=== PATIENT | male | born 1995 | race Hispanic/Latino ===

== ENCOUNTER 2017-08-10 21:46 | Emergency (ER) | payer SELFPAY ==
[2017-08-10 22:37] LABS: Urine Blood NEGATIVE (NEG); Urine Glucose NEGATIVE (NEG); Urine Protein NEGATIVE (NEG); Urine pH 6.5 (5.0-7.0)
--- NOTE | 2017-08-10 22:52 | ER ---
Nurse's Notes [facility] Name: Jose Juan Richardson Jr Age: 21 yrs Sex: Male : 1995 Arrival Date: 08/10/2017 Time: 21:50 Bed 23 Private MD: Diagnosis: Vomiting;Diarrhea, unspecified Presentation: 08/10 22:05 Presenting complaint: Patient states: he thinks he may be dehydrated woke up this bb morning vomited then he went to work and was later sent home c/o burning eyes went to sleep after he went home but woke up feeling dizzy, light-headed with a headache and a "coppery taste" in his mouth. Transition of care: patient was not received from another setting of care. Onset of symptoms was August 10, 2017. Risk Assessment: Do you want to hurt yourself or someone else? Patient reports no desire to harm self or others. Initial Sepsis Screen: Does the patient meet any 2 criteria? No. Patient's initial sepsis screen is negative. Does the patient have a suspected source of infection? No. Patient's initial sepsis screen is negative. Care prior to arrival: None. 22:05 Method Of Arrival: Ambulatory bb 22:05 Acuity: YARIEL 3 bb Historical: - Allergies: 22:08 No Known Allergies; bb - Home Meds: 22:08 None [Active]; bb - PMHx: 22:08 ADD/ADHD; Hernia; bb - PSHx: 22:08 Appendectomy; bb - Immunization history:: Adult Immunizations up to date. - Social history:: Smoking status: Patient/guardian denies using tobacco, Patient/guardian denies using alcohol, street drugs. - Ebola Screening: : No symptoms or risks identified at this time. - Family history:: not pertinent. Screenin:22 Abuse screen: Denies threats or abuse. Denies injuries from another. Nutritional kr2 screening: No deficits noted. Tuberculosis screening: No symptoms or risk factors identified. Fall Risk None identified. Assessment: 22:20 General: Appears in no apparent distress. comfortable, well groomed, well developed, kr2 well nourished, Behavior is calm, cooperative, appropriate for age. Pain: Denies pain. Neuro: Level of Consciousness is awake, alert, obeys commands, Oriented to person, place, time, situation, Appropriate for age. Cardiovascular: Capillary refill < 3 seconds in bilateral fingers Patient's skin is warm and dry. Respiratory: Airway is patent Respiratory effort is even, unlabored, Respiratory pattern is regular, symmetrical. GI: Abdomen is round non-distended, Reports nausea, vomiting. : Urine is clear. EENT: Oral mucosa is moist. Derm: Skin is intact, is healthy with good turgor, Skin is clammy, Skin is pink, Skin temperature is warm. Musculoskeletal: Circulation, motion, and sensation intact. 23:01 Reassessment: Patient appears in no apparent distress at this time. Patient and/or kr2 family updated on plan of care and expected duration. Pain level reassessed. Patient is alert, oriented x 3, equal unlabored respirations, skin warm/dry/pink. Patient denies pain at this time. Vital Signs: 22:08 BP 121 / 79; Pulse 67; Resp 16 S; Temp 98.1(O); Pulse Ox 99% on R/A; Weight 97.52 kg bb (R); Height 5 ft. 9 in. (175.26 cm) (R); Pain 6/10; 23:12 BP 119 / 76; Pulse 66; Resp 16; Pulse Ox 100% on R/A; kr2 22:08 Body Mass Index 31.75 (97.52 kg, 175.26 cm) ED Course: 21:50 Patient arrived in ED. al2 21:53 Rodo Cotto MD is Attending Physician. [facility] 22:07 Triage completed. bb 22:08 Arm band placed on Patient placed in an exam room, on a stretcher, on pulse oximetry. 22:20 Danielle Phelps, RN is Primary Nurse. kr2 22:22 Patient has correct armband on for positive identification. Bed in low position. Call kr2 light in reach. Side rails up X 1. Pulse ox on. NIBP on. Door closed. Warm blanket given. Head of bed elevated. 23:00 No provider procedures requiring assistance completed. Patient did not have IV access kr2 during this emergency room visit. Administered Medications: No medications were administered Outcome: 22:51 Discharge ordered by . devyn 23:01 Discharged to home ambulatory. kr2 23:01 Condition: good 23:01 Discharge instructions given to patient, Instructed on discharge instructions, follow up and referral plans. Demonstrated understanding of instructions, follow-up care, medications. 23:12 Patient left the ED. kr2 Signatures: Rodo Cotto MD MD cha Ballard, Brenda, RN RN Danielle Guerrero RN RN kr2 Chloe Hamilton
--- NOTE | 2017-08-10 22:52 | EDPHYS ---
Physician Documentation [facility] Name: Jose Juan Richardson Jr Age: 21 yrs Sex: Male : 1995 Arrival Date: 08/10/2017 Time: 21:50 Bed 23 Private MD: ED Physician Rodo Cotto HPI: 08/10 22:44 This 21 yrs old Male presents to ER via Ambulatory with complaints of devyn Nausea/Vomiting, Fever. 22:44 The patient presents to the emergency department with nausea, vomiting, diarrhea, devyn abdominal pain. Onset: The symptoms/episode began/occurred just prior to arrival. Possible causes: unknown. The symptoms are aggravated by nothing. The symptoms are alleviated by nothing. Associated signs and symptoms: The patient has no apparent associated signs or symptoms. Severity of symptoms: At their worst the symptoms were very mild. The patient has not experienced similar symptoms in the past. Historical: - Allergies: 22:08 No Known Allergies; bb - Home Meds: 22:08 None [Active]; bb - PMHx: 22:08 ADD/ADHD; Hernia; bb - PSHx: 22:08 Appendectomy; bb - Immunization history:: Adult Immunizations up to date. - Social history:: Smoking status: Patient/guardian denies using tobacco, Patient/guardian denies using alcohol, street drugs. - Ebola Screening: : No symptoms or risks identified at this time. - Family history:: not pertinent. ROS: 22:44 Constitutional: Negative for fever, chills, and weight loss, Eyes: Negative for injury, devyn pain, redness, and discharge, ENT: Negative for injury, pain, and discharge, Neck: Negative for injury, pain, and swelling, Cardiovascular: Negative for chest pain, palpitations, and edema, Respiratory: Negative for shortness of breath, cough, wheezing, and pleuritic chest pain, Back: Negative for injury and pain, : Negative for injury, bleeding, discharge, and swelling, MS/Extremity: Negative for injury and deformity, Skin: Negative for injury, rash, and discoloration, Neuro: Negative for headache, weakness, numbness, tingling, and seizure, Psych: Negative for depression, anxiety, suicide ideation, homicidal ideation, and hallucinations, Allergy/Immunology: Negative for hives, rash, and allergies, Endocrine: Negative for neck swelling, polydipsia, polyuria, polyphagia, and marked weight changes. 22:44 Abdomen/GI: Positive for abdominal pain, nausea and vomiting, nausea, vomiting, and diarrhea. Exam: 22:44 Constitutional: This is a well developed, well nourished patient who is awake, alert, devyn and in no acute distress. Head/Face: Normocephalic, atraumatic. Eyes: Pupils equal round and reactive to light, extra-ocular motions intact. Lids and lashes normal. Conjunctiva and sclera are non-icteric and not injected. Cornea within normal limits. Periorbital areas with no swelling, redness, or edema. ENT: Nares patent. No nasal discharge, no septal abnormalities noted. Tympanic membranes are normal and external auditory canals are clear. Oropharynx with no redness, swelling, or masses, exudates, or evidence of obstruction, uvula midline. Mucous membranes moist. Neck: Trachea midline, no thyromegaly or masses palpated, and no cervical lymphadenopathy. Supple, full range of motion without nuchal rigidity, or vertebral point tenderness. No Meningismus. Chest/axilla: Normal chest wall appearance and motion. Nontender with no deformity. No lesions are appreciated. Cardiovascular: Regular rate and rhythm with a normal S1 and S2. No gallops, murmurs, or rubs. Normal PMI, no JVD. No pulse deficits. Respiratory: Lungs have equal breath sounds bilaterally, clear to auscultation and percussion. No rales, rhonchi or wheezes noted. No increased work of breathing, no retractions or nasal flaring. Abdomen/GI: Soft, non-tender, with normal bowel sounds. No distension or tympany. No guarding or rebound. No evidence of tenderness throughout. Back: No spinal tenderness. No costovertebral tenderness. Full range of motion. Male : Normal genitalia with no discharge or lesions. Skin: Warm, dry with normal turgor. Normal color with no rashes, no lesions, and no evidence of cellulitis. MS/ Extremity: Pulses equal, no cyanosis. Neurovascular intact. Full, normal range of motion. Neuro: Awake and alert, GCS 15, oriented to person, place, time, and situation. Cranial nerves II-XII grossly intact. Motor strength 5/5 in all extremities. Sensory grossly intact. Cerebellar exam normal. Normal gait. Psych: Awake, alert, with orientation to person, place and time. Behavior, mood, and affect are within normal limits. Vital Signs: 22:08 BP 121 / 79; Pulse 67; Resp 16 S; Temp 98.1(O); Pulse Ox 99% on R/A; Weight 97.52 kg bb (R); Height 5 ft. 9 in. (175.26 cm) (R); Pain 6/10; 23:12 BP 119 / 76; Pulse 66; Resp 16; Pulse Ox 100% on R/A; kr2 22:08 Body Mass Index 31.75 (97.52 kg, 175.26 cm) MDM: 21:53 Patient medically screened. [facility] 22:50 Data reviewed: vital signs, nurses notes. [facility] 08/10 22:22 Order name: Urine Dipstick--Ancillary (enter results); Complete Time: 22:44 eb Administered Medications: No medications were administered Disposition: 08/10/17 22:51 Discharged to Home. Impression: Vomiting, Diarrhea, unspecified. - Condition is Stable. - Discharge Instructions: Food Choices to Help Relieve Diarrhea, Adult, Diarrhea, Nausea and Vomiting, Nausea and Vomiting, [id number], Diarrhea, [id number]. - Medication Reconciliation Form, Thank You Letter, Antibiotic Education, Prescription Opioid Use, Work release form form. - Follow up: Private Physician; When: 2 - 3 days; Reason: Recheck today's complaints, Continuance of care, Re-evaluation by your physician. - Problem is new. - Symptoms have improved. Signatures: Dispatcher [employer] EDRI Rodo Cotto MD MD cha Ballard, Brenda, ESTELLA RN Danielle Guerrero RN RN kr2 Corrections: (The following items were deleted from the chart) 23:12 22:51 08/10/2017 22:51 Discharged to Home. Impression: Vomiting; Diarrhea, unspecified. kr2 Condition is Stable. Forms are Medication Reconciliation Form, Thank You Letter, Antibiotic Education, Prescription Opioid Use. Follow up: Private Physician; When: 2 - 3 days; Reason: Recheck today's complaints, Continuance of care, Re-evaluation by your physician. Problem is new. Symptoms have improved. [facility]
== END 2017-08-10 23:12 | disposition home or self-care (01) ==
LOC: ER 21:46
DX: R19.7 Diarrhea, unspecified (principal)
CPT/HCPCS: 81003; 99283

== ENCOUNTER 2022-07-30 23:53 | Emergency (ER) | payer SELFPAY ==
--- OUTSIDE RECORDS SUMMARY | 2022-07-30 23:57 | XMS REPORT | Continuity of Care Document ---
:1995 Author Organization [facility] t Address [address] [place] [address] [address] [place] [address] Care Team Providers Name Role Phone Pcp, Patient Does Not Have A Primary Care Physician [email or web address] Attending Clinician Unavailable Salomon HEAD, METER REPAIRER HELPERReena Parsons Attending Clinician [phone] Ami Reynaga MA Attending Clinician Unavailable Fawn Hurst DO Attending Clinician Salomon HEAD, Reena ISAAC Unavailable [phone] Payers Payer Name Policy Type Policy Number Effective Date Expiration Date S ourgisela Title X P [id number] 2021 00:00:00 2022 00:00 :00 Title X P [id number] 2021 00:00:00 2022 00:00 :00 Problems Condition Condition Condition Status Onset Resolution Last Treating Co mments Source Name Details Category Date Date Treatment Clinician Date Disorder, Condition Active 2021-022021-12-27 Salomon [facility] endocrine 02-26 12:05:55 Reena Adult NOS 00:00: Medicin 00 e Health Condition Active 2021-022021-12-27 Salomon [facility] maintenanc 02-26 12:05:55 Reena Adul t e - 00:00: Medicin general 00 e care ADHD Condition Active 2021-022021-12-27 Salomon [facility] 02-26 12:05:55 Reena Adult 00:00: Medicin 00 e Exercise Condition Active 2021-022021-12-27 Pasha Latif Counseling 02-26 12:05:55 Reena Adul t 00:00: Medicin 00 e Overweight Condition Active 2021-022021-12-27 Salomon [facility] 02-26 12:05:55 Reena Adult 00:00: Medicin 00 e No known No known Disease Unive rs active active ity of problems problems [facility] Allergies, Adverse Reactions, Alerts Allergy Allergy Status Severity Reaction(s) Onset Inactive Treating Comm ents Source Name Type Date Date Clinician HYDROCOD Drug Active Low caused veryn 2021-02 LM C ONE allergy Criticali low blood 02-26 Jorge Alberto lt (disorde ty pressure 00:00: Medici n r) 00 e Hydrocod Propensi Active Nausea Univer s one ty to and/or 09-20 ity of adverse Vomiting 00:00: [place] reaction 00 [facility] s Branch HYDROCOD DRUG Active N/V Univers ONE INGREDI 09-20 ity of 00:00: [place] 00 [facility] Branch Social History Social Habit Start Date Stop Date Quantity Comments Source Exposure to Not sure University SARS-CoV-2 (event) [facility] is there any chance 2022-01-23 2022-01-23 No [facility] that you could be 15:05:27 15:05:27 Health ? PHQ2 Questionairre 2022-01-23 2022-01-23 [facility] Score 15:05:27 15:05:27 Health if the patient is 2022-01-23 2022-01-23 No [facility] using/has used a 15:05:27 15:05:27 Health vaping item, Current, Former, Never Used, Not asked Patient was 2022-01-23 2022-01-23 Counseled for [facility] munity counseled for sexual 15:05:27 15:05:27 sexual health [facility] drug use 2022-01-23 2022-01-23 Never [facility] Nahedi ty 15:05:27 15:05:27 Health alcohol use 2022-01-23 2022-01-23 Never [facility] ity 15:05:27 15:05:27 Health social history 2022-01-23 2022-01-23 reviewed today [facility] reviewed E&M 15:05:27 15:05:27 Health albumin, serum 2021-12-27 2021-12-27 5.0 g/dL [facility] madhaviity 13:38:00 13:38:00 Health Sex Assigned At [birth year] [facility] y of 00:00:00 00:00:00 [facility] Smoking Status Start Date Stop Date Source Never smoked tobacco (finding) L [facility] Unknown if ever smoked [facility] Medications Ordered Filled Start Stop Current Ordering Indication Dosage Frequency Signature Comments Components Source Medication Medication Date Date Medication? Clinician (SIG) Name Name (SPIRONOLAC 2021-02 Yes Reena 1 Take 1 LM C TONE) 50 MG 03-25 Salomon MSN, tablet by Adult TABS 00:00: METER REPAIRER HELPER mouth Medicin 00 twice a e day (ESTRADIOL) 2021-02 Yes Reena 1 Take 1 LM C 2 MG TABS 03-25 Salomon MSN, tablet by Adult 00:00: METER REPAIRER HELPER mouth as Medicin 00 directed e Take 2 tablets AM and 1 tab PM (PROGESTERO 2021-02 Yes Reena 1 Take 1 LM C NE) 100 MG 02-26 Salomon MSN, capsule by Adult CAPS 00:00: METER REPAIRER HELPER mouth once Medicin 00 a day e (SPIRONOLAC 2021-02 No Reena 1 Take 1 L MC TONE) 25 MG 02-26 Salomon MSN, tablet by Adult TABS 00:00: 00:00 METER REPAIRER HELPER mouth Medicin 00 :00 twice a e day (ESTRADIOL) 2021-02 No Reena 1 Take 1 L MC 2 MG TABS 02-26 Salomon MSN, tablet by Adult 00:00: 00:00 METER REPAIRER HELPER mouth Medicin 00 :00 twice a e day traMADOL 2017-0 Yes 50mg Take 1 Univers (ULTRAM) 50 7-27 tablet by ity of mg tablet 00:00: mouth [place] 00 every 6 Medical (six) Branch hours as needed for Pain (scale 4-6). traMADOL 2017-0 Yes 50mg Take 1 Univers (ULTRAM) 50 7-27 tablet by ity of mg tablet 00:00: mouth [place] 00 every 6 Medical (six) Branch hours as needed for Pain (scale 4-6). Immunizations Ordered Immunization Filled Immunization Date Status Commen ts Source Name Name Fluzone Quadrivalent 2021-12-27 Completed [facility] IM Prefilled Syringe 12:49:00 [facility] 0.5 ML (PF) [id number] Vital Signs Vital Name Observation Time Observation Value Comments Source Systolic blood 2020-10-25 15:53:00 131 mm[Hg] Univer sity [facility] Diastolic blood 2020-10-25 15:53:00 81 mm[Hg] Unive rsity [facility] Heart rate 2020-10-25 15:53:00 81 /min [facility] Body temperature 2020-10-25 15:53:00 36.78 [facility] Respiratory rate 2020-10-25 15:53:00 16 /min [facility] Body height 2020-10-25 15:53:00 175.3 cm [facility] Body weight 2020-10-25 15:53:00 95.255 kg [facility] BMI 2020-10-25 15:53:00 31.01 kg/m2 [facility] Oxygen saturation in 2020-10-25 15:53:00 99 /min [facility] Arterial blood by [facility] Pulse oximetry Branch pulse rate 2021-12-27 11:18:10 69 /min On license of [facility] Diastolic blood 2021-12-27 11:18:10 61 mm[Hg] [facility] 2021-12-27 11:18:10 109 mm[facility]Hg[facility] 2021-12-27 11:18:10 98.3 [degF[facility] BMI (body mass 2021-12-27 11:18:10 n/a [facility] index) percentile Health Body Mass Index 2021-12-27 11:18:10 27.71 kg[facility]m2 [facility] weight E&M 2021-12-27 11:18:10 187 [lb_av] [facility] weight in kilograms 2021-12-27 11:18:10 85 kg L [facility] E&M Health height in 2021-12-27 11:18:10 [facility] temperature site 2021-12-27 11:18:10 oral [facility] Procedures Procedure Date / Time Performing Clinician Source Performed Health 2022-01-11 14:08:40 Provider, [facility] Education/Supportive Health Services Health Counseling First Ix admin via ID 2021-12-27 12:49:39 Reena Latif [facility] IM or jet injects with Health counseling by physician for adult Fluzone Quadrivalent IM 2021-12-27 12:47:34 Reena Latif [facility] Prefilled Syringe 0.5 Health mL (PF) Vaccines Ordered - 2021-12-27 11:55:46 [facility]ena [facility]X Consent/Declination Forms Gender Care Navigation 2021-12-27 11:31:24 Reena Latif Critical access hospital Venipuncture 2021-12-27 11:30:12 Reena Latif [facility] RAPID STREP SCREEN FOR 2020-10-25 15:57:00 Fawn Hurst [employer] [place] GROUP A Medical Branch COVID-19 (ID NOW RAPID 2020-10-25 15:57:00 Fawn Hurst [employer] [facility] TESTING) Medical Branch Encounters Start End Encounter Admission Attending Care Care Encounter Source Date/Time Date/Time Type Type Clinicians Facility Department ID 2022-06-25 Outpatient [id number] [facility] [id number] [facility] 12:21:08 [id number] [facility] 2022-06-22 Outpatient [id number] [facility] [id number] [facility] 20:22:11 [id number] [facility] 2022-04-[address] [id number] [facility] 13:31:14 [id number] [facility] 2022-01-22 [address] [id number] [facility] 15:39:05 [id number] [facility] 2022-01-[address] [id number] [facility] 13:58:47 [id number] [facility] 2021-12-28 Outpatient [address] [id number] [facility] 11:45:07 [id number] [facility] 2021-12-05 Outpatient [facility] [id number] [facility] 14:27:09 [id number] [facility] 2022-01-23 2022-01-24 In-person Reena Latif [facility] Adult Encounter/ [facility] 00:00:00 00:00:00 encounter Ami Reynaga Medicine [id number] [facility] [id number] [facility] 2022-01-23 2022-01-24 In-person Reena Latif [facility] Adult [id number] [facility] 00:00:00 00:00:00 encounter Ami Reynaga Medicine [id number] [facility] 2021-12-27 2021-12-28 In-person Reena Latif [facility] Adult [id number] [facility] 00:00:00 00:00:00 encounter Miles Camacho Medicine [id number] [facility] Ami Reynaga [facility] 2021-12-27 2021-12-28 In-person Reena Latif [facility] Adult Encounter/ Legacy 00:00:00 00:00:00 encounter Ami Reynaga Medicine [id number] [facility] [id number] [facility] 2020-10-25 2020-10-25 Emergency Aris [facility] [id number] [facility] 11:00:00 13:52:00 Fawn Beck [id number] [facility] [id number] [facility] [id number] [place] [id number] Branch 2020-10-25 2020-10-25 Emergency X [facility] ERT [id number] Univers 10:41:00 10:41:00 [facility] Results Test Description Test Time Test Comments Results Result Comments Source mean corpuscular hemoglobin, RBC 2021-12-27 13:38:00 Test Item Value Reference Range Interpretation Comme nts mean corpuscular hemoglobin, RBC (test code = 785-6) 31.3 pg 2 7.0-33.0 N [facility], [id number] 13:38:00 Test Item Value Reference Range Interpretation Comments mean corpuscular volume, RBC (test 90.2 fL 80.0-100.0 N code = 787-2) [facility]ocrit, [id number] 13:38:00 Test Item Value Reference Range Interpretation Comments hematocrit, blood (test code = 4544-3) 45.3 % 38.5-50.0 N [facility]oglobin, [id number] 13:38:00 Test Item Value Reference Range Interpretation Comments hemoglobin, blood (test code = 15.7 g/dL 13.2-17.1 N 718-7) [facility]throcyte (RBC) [id number] 13:38:00 Test Item Value Reference Range Interpretation Comments erythrocyte (RBC) count (test 5.02 MILLION/UL 4.20-5.80 N code = 789-8) [facility]leukocyte count, [id number] 13:38:00 Test Item Value Reference Range Interpretation Comments leukocyte count, blood (test 5.6 THOUSAND/UL 3.8-10.8 N code = 6690-2) [facility]alanine aminotransferase (SGPT), [id number] 13:38:00 Test Item Value Reference Range Interpretation Comments alanine aminotransferase (SGPT), serum 18 1/L 9-46 N (test code = 1742-6) [facility]villeaspartate aminotransferase (SGOT), [id number] 13:38:00 Test Item Value Reference Range Interpretation Comments aspartate aminotransferase (SGOT), 11 1/L 10-40 N serum (test code = 1920-8) [facility]villealkaline phosphatase, [id number] 13:38:00 Test Item Value Reference Range Interpretation Comments alkaline phosphatase, serum (test code 54 1/L 36-130 N = 1783-0) [facility]bilirubin, serum, [id number] 13:38:00 Test Item Value Reference Range Interpretation Comments bilirubin, serum, total (test code 0.8 mg/dL 0.2-1.2 N = 1975-2) [facility] Healthalbumin/globulin ratio, [id number] 13:38:00 Test Item Value Reference Range Interpretation Comments albumin/globulin ratio, serum 1.9 (calc) 1.0-2.5 N (test code = 1759-0) [facility]lobulins, serum, [id number] 13:38:00 Test Item Value Reference Range Interpretation Comments globulins, serum, total (test 2.6 G/DL (CALC) 1.9-3.7 N code = 2336-6) [facility] Healthalbumin, [id number] 13:38:00 Test Item Value Reference Range Interpretation Comments albumin, serum (test code = 1751-7) 5.0 g/dL 3.6-5.1 N [facility]protein, total, [id number] 13:38:00 Test Item Value Reference Range Interpretation Comments protein, total, serum (test code = 7.6 g/dL 6.1-8.1 N 5-2) [facility]calcium, [id number] 13:38:00 Test Item Value Reference Range Interpretation Comments calcium, serum (test code = 10.3 mg/dL 8.6-10.3 N 1999-8) [facility] dioxide, venous [id number] 13:38:00 Test Item Value Reference Range Interpretation Comments carbon dioxide, venous blood (test 31 mmol/L 20-32 N code = 2026-1) [facility]villechloride, [id number] 13:38:00 Test Item Value Reference Range Interpretation Comments chloride, serum (test code = 102 mmol/L 98-110 N 2074-0) [facility]potassium, [id number] 13:38:00 Test Item Value Reference Range Interpretation Comments potassium, serum (test code = 4.2 mmol/L 3.5-5.3 N 2823-3) [facility]villesodium, [id number] 13:38:00 Test Item Value Reference Range Interpretation Comments sodium, serum (test code = 2951-2) 140 mmol/L 135-146 N [facility]villeurea nitrogen/creatinine ratio, [id number] 13:38:00 Test Item Value Reference Range Interpretation Comments urea NOT APPLICABLE (calc) 6-22 nitrogen/creatinine ratio, serum (test code = 3097-3) [facility]tersvilleEstimated Glomerular Filtration Rate (calc)2021-12-27 13:38:00 Test Item Value Reference Range Interpretation Comments Estimated Glomerular 128 See_Comment N [Autom ated message] Filtration Rate mL/min/{1.73 The system w [facility] (calc) (test code = m2} generate d this 92889-7) result transmit christo reference range : > OR = 60. The reference range was not used to interpret this result as normal/abnormal . [facility]villecreatinine, [id number] 13:38:00 Test Item Value Reference Range Interpretation Comments creatinine, serum (test code = 0.73 mg/dL 0.60-1.24 N 2160-0) [facility] nitrogen, [id number] 13:38:00 Test Item Value Reference Range Interpretation Comments urea nitrogen, blood (test code = 12 mg/dL 7-25 N 3094-0) [facility] glucose, [id number] 13:38:00 Test Item Value Reference Range Interpretation Comments blood glucose, random (test code = 96 mg/dL 65-99 N 2339-0) [facility]tersvilleNeisseria gonorrhoeae DNA [id number] 13:38:00 Test Item Value Reference Range Interpretation Comments Neisseria gonorrhoeae DNA probe NOT DETECTED NOT DETECTED N (test code = 47235-6) [facility]villechlamydia DNA [id number] 13:38:00 Test Item Value Reference Range Interpretation Comments chlamydia DNA probe (test code = NOT DETECTED NOT DETECTED N 06632-0) [facility]tersvilleHIV-CMIA (Chemiluminescent Microparticle Immuno Assay) 2021-12-27 13:38:00 Test Item Value Reference Range Interpretation Comments HIV-CMIA (Chemiluminescent NON-REACTIVE NON-REACTIVE N Microparticle Immuno Assay) (test code = 76836-0) [facility]cholesterol, non-HDL, [id number] 13:38:00 Test Item Value Reference Range Interpretation Comments cholesterol, non-HDL, total 154 MG/DL (CALC) <130 H (test code = 63957) [facility]cholesterol/HDL ratio, serum, [id number] 13:38:00 Test Item Value Reference Range Interpretation Comments cholesterol/HDL ratio, serum, 4.4 (calc) <5.0 N percent (test code = 2404) [facility]villeLDL cholesterol, [id number] 13:38:00 Test Item Value Reference Range Interpretation Comments LDL cholesterol, serum (test 124 MG/DL (CALC) H code = 2089-1) [facility]villetriglyceride, serum, [id number] 13:38:00 Test Item Value Reference Range Interpretation Comments triglyceride, serum, fasting (test 181 mg/dL <150 H code = 2571-8) [facility]villeHDL cholesterol, [id number] 13:38:00 Test Item Value Reference Range Interpretation Comments HDL cholesterol, 45 mg/dL See_Comment N [Automated message] The serum (test code = system ich generated 2084-10) this result tra nsmitted reference range : > OR = 40. The referen ce range was not used to interpret this result as normal/abnormal . [facility]villecholesterol, [id number] 13:38:00 Test Item Value Reference Range Interpretation Comments cholesterol, serum (test code = 199 mg/dL <200 N 3-3) [facility]villehepatitis C antibody, [id number] 13:38:00 Test Item Value Reference Range Interpretation Comments hepatitis C antibody, serum NON-REACTIVE NON-REACTIVE N (test code = 5199-5) [facility]tersvilleNeisseria gonorrhoeae DNA [id number] 13:38:00 Test Item Value Reference Range Interpretation Comments Neisseria gonorrhoeae DNA probe NOT DETECTED NOT DETECTED N (test code = 43822-3) [facility] Huntersvillerapid plasma reagin antibody, [id number] 13:38:00 Test Item Value Reference Range Interpretation Comments rapid plasma reagin antibody, NON-REACTIVE NON-REACTIVE N serum (test code = 5291-0) [facility]hemoglobin A1C, blood, as % of total [id number] 13:38:00 Test Item Value Reference Range Interpretation Comments hemoglobin A1C, blood, as 4.9 % OF TOTAL HGB <5.7 N % of total hemoglobin (test code = 4548-4) [facility]villevitamin D 25-hydroxy, [id number] 13:38:00 Test Item Value Reference Range Interpretation Comments vitamin D 25-hydroxy, serum (test 20 ng/mL 30-100 L code = 50222-4) [facility]villeestradiol, [id number] 13:38:00 Test Item Value Reference Range Interpretation Comments estradiol, serum 27 pg/mL See_Comment N [Automated message] The (test code = 286) system [employer] generated this result tra nsmitted reference range : < OR = 39. The referen ce range was not used to interpret this result as normal/abnormal . [facility]villethyroid stimulating hormone, [id number] 13:38:00 Test Item Value Reference Range Interpretation Comments thyroid stimulating hormone, 2.17 u[IU]/mL 0.40-4.50 N serum (test code = 3016-3) [facility]estosterone, [id number] 13:38:00 Test Item Value Reference Range Interpretation Comments testosterone, total (test code = 500 ng/dL 250-827 N 2986-8) [facility]villeprolactin, [id number] 13:38:00 Test Item Value Reference Range Interpretation Comments prolactin, serum (test code = 4.8 ng/mL 2.0-18.0 N 2842-3) [facility]villeHepatitis C Antibody, Signal to [id number] 13:38:00 Test Item Value Reference Range Interpretation Comments Hepatitis C Antibody, 0.05 (unknown unit) <1.00 N Signal to Cut-Off (test code = 20667-4) [facility]hepatitis C antibody, [id number] 13:38:00 Test Item Value Reference Range Interpretation Comments hepatitis C antibody, serum NON-REACTIVE NON-REACTIVE N (test code = 43875-9) [facility]hepatitis A antibody, [id number] 13:38:00 Test Item Value Reference Range Interpretation Comments hepatitis A antibody, total (test REACTIVE NON-REACTIVE A code = 55426-5) [facility]hepatitis B core antibody, [id number] 13:38:00 Test Item Value Reference Range Interpretation Comments hepatitis B core antibody, total NON-REACTIVE NON-REACTIVE N (test code = 44438-8) [facility] [id number] 13:38:00 Test Item Value Reference Range Interpretation Comments hepatitis B surface antibody NON-REACTIVE NON-REACTIVE N (test code = 72834-6) [facility] [id number] 13:38:00 Test Item Value Reference Range Interpretation Comments hepatitis B surface antigen NON-REACTIVE NON-REACTIVE N (test code = 36888-0) [facility] Healthbasophils as percent of blood [id number] 13:38:00 Test Item Value Reference Range Interpretation Comments basophils as percent of blood 0.7 % N leukocytes (test code = 707-0) [facility]villeeosinophils as percent of blood [id number] 13:38:00 Test Item Value Reference Range Interpretation Comments eosinophils as percent of blood 2.0 % N leukocytes (test code = 714-6) [facility] Healthmonocytes as percent of blood [id number] 13:38:00 Test Item Value Reference Range Interpretation Comments monocytes as percent of blood 5.2 % N leukocytes (test code = 5905-5) [facility]lymphocytes as percent of blood [id number] 13:38:00 Test Item Value Reference Range Interpretation Comments lymphocytes as percent of blood 31.3 % N leukocytes (test code = 736-9) [facility]villeneutrophils as percent of blood [id number] 13:38:00 Test Item Value Reference Range Interpretation Comments neutrophils as percent of blood 60.8 % N leukocytes (test code = 770-8) [facility]villebasophil count, [id number] 13:38:00 Test Item Value Reference Range Interpretation Comments basophil count, absolute (test 39 cells/uL 0-200 N code = 53763-4) [facility]villeAbsolute Eosinophil [id number] 13:38:00 Test Item Value Reference Range Interpretation Comments Absolute Eosinophil count (test 112 cells/mcL 15-500 N code = 58995-4) [facility]Absolute Monocyte [id number] 13:38:00 Test Item Value Reference Range Interpretation Comments Absolute Monocyte count (test 291 cells/mcL 200-950 N code = 52410-9) [facility]villelymphocytes, [id number] 13:38:00 Test Item Value Reference Range Interpretation Comments lymphocytes, absolute (test 1753 CELLS/UL 850-3900 N code = 00278-2) [facility]villeAbsolute Neutrophil [id number] 13:38:00 Test Item Value Reference Range Interpretation Comments Absolute Neutrophil count 3405 cells/mcL 2469-1859 N (test code = 16425-9) [facility] platelet [id number] 13:38:00 Test Item Value Reference Range Interpretation Comments mean platelet volume (test code = 10.1 fL 7.5-12.5 N 776-5) [facility]villeplatelet [id number] 13:38:00 Test Item Value Reference Range Interpretation Comments platelet count (test code = 239 THOUSAND/UL 140-400 N 777-3) [facility]red blood cell distribution [id number] 13:38:00 Test Item Value Reference Range Interpretation Comments red blood cell distribution width 12.6 % 11.0-15.0 N (test code = 788-0) [facility] corpuscular hemoglobin concentration, [id number] 13:38:00 Test Item Value Reference Range Interpretation Comments mean corpuscular hemoglobin 34.7 G/DL 32.0-36.0 N concentration, RBC (test code = 786-4) [facility]villeCOVID-19 (ID NOW RAPID TESTING)2020-10-25 16:36:10 Test Item Value Reference Range Interpretation Comments SARS-CoV-2 Rapid ID NOW Not Detected Not Detected (test code = 76428-8) SANDEE (test code = SANDEE) ID NOW COVID-19 Assay is an isothermal nucleic acid amplification test intended for the qualitative detection of nucleic acid from SARS-CoV-2 viral RNA in nasopharyngeal (PEDIATRIC SPEECH THERAPIST) specimens. It is used under Emergency Use Authorization (EUA) by FDA. The limit of detection (LOD) of the assay is 125 Genome Equivalents/mL. A positive result is indicative of the presence of SARS-CoV-2 RNA. ?Clinical correlation with patient history and other diagnostic information is necessary to determine patient infection status. A negative (Not Detected) result does not preclude SARS-CoV-2 infection. In patients with clinical symptoms and other tests that are consistent with SARS-CoV-2 infection, negative results should be treated as presumptive negative and a new specimen should be tested with alternative PCR molecular test. Invalid: Please collect a new specimen for repeat patient testing if clinically indicated. Lab Interpretation Normal (test code = 01106-4) [facility]2020-10-25 16:36:10 Test Item Value Reference Range Interpretation Comments SARS-CoV-2 Rapid ID NOW (test Not Detected Not Detected code = 34296-4) SANDEE (test code = SANDEE) Lab Interpretation (test code = Normal 65085-2) [facility] STREP SCREEN FOR GROUP [id number] 16:33:17 Test Item Value Reference Range Interpretation Comments Streptococcus pyogenes (group A) Negative Negative antigen (test code = 95994-3) Lab Interpretation (test code = Normal 61544-3) [facility] STREP SCREEN FOR GROUP [id number] 16:33:17 Test Item Value Reference Range Interpretation Comments Streptococcus pyogenes (group A) Negative Negative antigen (test code = 00306-4) Lab Interpretation (test code = Normal 08324-4) [facility]
[2022-07-31] MEDS ORDERED: IBUPROFEN 200 MG TAB PO ONE (01:08)
[2022-07-31 01:50] LABS: Urine Bilirubin NEGATIVE (Negative); Urine Blood Negative (Negative); Urine Clarity Clear (Clear); Urine Color Light-Yellow (Yellow); Urine Glucose NEGATIVE (Negative); Urine Protein NEGATIVE (Negative); Urine Urobilinogen Normal (Normal)
[2022-07-31 01:51] LABS: SARS-CoV-2 Antigen Rapid Res Negative (Negative)
--- NOTE | 2022-07-31 02:01 | EDPHYS ---
Physician Documentation [facility] Name: Jose Juan Richardson Jr Age: 26 yrs Sex: Male : 1995 Arrival Date: 07/30/2022 Time: 23:53 Bed 7 Private MD: ED Physician Julian Keenan HPI: 07/31 01:00 This 26 yrs old Male presents to ER via Ambulatory with complaints of Sore kb Throat, Arm Pain, Chest Pain, Low Back Pain. 01:00 The patient presents with sore throat. The patient describes throat pain as constant. kb Onset: The symptoms/episode began/occurred a couple of days ago, got worse todya. Severity of symptoms: At their worst the symptoms were moderate, in the emergency department the symptoms are unchanged. Modifying factors: The symptoms are alleviated by nothing, the symptoms are aggravated by swallowing. Associated signs and symptoms: Pertinent positives: earache, fever, flu-like symptoms, malaise, Sore throat. The patient has not experienced similar symptoms in the past. The patient has not recently seen a physician. Pt reports he felt like something was in his throat a few days ago and then it started hurting and has only gotten worse. Today has had sore throat, ear pain, headache, malaise, fatigue, fever and chills. . Historical: - Allergies: 00:07 Hydrocodone-Acetaminophen; vc1 - Home Meds: 00:07 Estradiol Oral [Active]; testerone blocking hormone [Active]; vc1 - PMHx: 00:07 ADD/ADHD; Hernia; vc1 - PSHx: 00:07 Appendectomy; vc1 - Immunization history:: Client reports having NOT received the Covid vaccine. - Social history:: Smoking status: Patient denies any tobacco usage or history of. ROS: 00:59 Abdomen/GI: Negative for abdominal pain, nausea, vomiting, diarrhea, and constipation. kb 00:59 Constitutional: Positive for fatigue, malaise. 00:59 ENT: Positive for ear pain, sore throat. 00:59 Neuro: Positive for headache. 00:59 All other systems are negative. Exam: 00:58 Constitutional: This is a well developed, well nourished patient who is awake, alert, kb and in no acute distress. Head/Face: Normocephalic, atraumatic. Cardiovascular: Regular rate and rhythm with a normal S1 and S2. No gallops, murmurs, or rubs. No pulse deficits. Respiratory: Respirations even and unlabored. No increased work of breathing. Talking in full sentences Abdomen/GI: Soft, non-tender. No distention Back: No spinal tenderness. No costovertebral tenderness. Full range of motion. Skin: Warm, dry with normal turgor. Normal color. MS/ Extremity: Pulses equal, no cyanosis. Neurovascular intact. Full, normal range of motion. Neuro: Awake and alert, GCS 15, oriented to person, place, time, and situation. Moves all extremities. Normal gait. 00:58 ENT: External ear(s): are unremarkable, Ear canal(s): are normal, TM's: are normal, Posterior pharynx: Airway: normal, no evidence of obstruction, Tonsils: bilaterally enlarged, with erythema, Uvula: normal, midline, swelling, that is moderate, erythema, is not appreciated. Vital Signs: 00:03 BP 134 / 76; Pulse 99; Resp 19; Temp 101; Pulse Ox 99% ; Weight 83.46 kg; Height 5 ft. vc1 9 in. ; Pain 9/10; 01:53 BP 125 / 67; Pulse 99; Resp 19; Temp 98.6(O); Pulse Ox 99% on R/A; rv 00:03 Body Mass Index 27.17 (83.46 kg, 175.26 cm) vc1 00:03 Pain Scale: Adult vc1 MDM: 00:03 Patient medically screened. kb 00:59 Differential diagnosis: strep, flu, covid. Data reviewed: vital signs, nurses notes. kb 02:00 Counseling: I had a detailed discussion with the patient and/or guardian regarding: the kb historical points, exam findings, and any diagnostic results supporting the discharge/admit diagnosis, lab results, the need for outpatient follow up, a family practitioner, to return to the emergency department if symptoms worsen or persist or if there are any questions or concerns that arise at home. 07/31 00:07 Order name: Urinalysis w/ reflexes; Complete Time: 01:50 kb 07/31 00:07 Order name: Strep; Complete Time: 01:58 kb 07/31 00:07 Order name: Flu; Complete Time: 02:01 kb 07/31 00:07 Order name: SARS-COV-2 Antigen Rapid; Complete Time: 01:52 kb 07/31 01:54 Order name: Throat Culture [facility] 07/31 01:50 Order name: Vital Signs; Complete Time: 01:53 kb Administered Medications: 01:05 Drug: Ibuprofen PO 600 mg Route: PO; jj7 Disposition: 03:44 Co-signature as Attending Physician, Julian Keenan MD I agree with the assessment sp4 and plan of care. I reviewed the patient's care provided by the Advanced Practice Provider and agree with the diagnosis and treatment plan. Disposition Summary: 07/31/22 02:01 Discharge Ordered Location: Home kb Condition: Stable kb Diagnosis - Acute pharyngitis, unspecified kb Followup: kb - With: Emergency Department - When: As needed - Reason: Worsening of condition Followup: kb - With: Private Physician - When: 2 - 3 days - Reason: Recheck today's complaints, Continuance of care, Re-evaluation by your physician Discharge Instructions: - Discharge Summary Sheet kb - Pharyngitis, [id number] kb Forms: - Medication Reconciliation Form kb - Thank You Letter kb - Antibiotic Education kb - Prescription Opioid Use kb Signatures: Dispatcher [employer] [facility] Jyoti Tran, PIE TOPPER-C PIE TOPPER-Nuira Vargas RN RN vc1 Chayo Byrd RN RN jj7 Julian Keenan MD MD sp4 Corrections: (The following items were deleted from the chart) 00:09 00:07 Home Meds: estrogen; vc1 vc1
--- NOTE | 2022-07-31 02:01 | ER ---
Nurse's Notes [facility] Name: Jose Juan Richardson Jr Age: 26 yrs Sex: Male : 1995 Arrival Date: 07/30/2022 Time: 23:53 Bed 7 Private MD: Diagnosis: Acute pharyngitis, unspecified Presentation: 07/31 00:03 Chief complaint: Patient states: My throat, head, chest, kidneys hurt. I have been vc1 dizzy and my ears ring it gets worse when I stand. Coronavirus screen: Vaccine status: Patient reports being unvaccinated. chills, fatigue, fever, headache, muscle pain, sore throat, Client presents with at least one sign or symptom that may indicate coronavirus-19. Standard/surgical mask placed on the client. Provider contacted for isolation considerations. Ebola Screen: Patient negative for fever greater than or equal to 101.5 degrees Fahrenheit, and additional compatible Ebola Virus Disease symptoms Patient denies exposure to infectious person. Patient denies travel to an Ebola-affected area in the 21 days before illness onset. No symptoms or risks identified at this time. Initial Sepsis Screen: Does the patient meet any 2 criteria? HR > 90 bpm. No. Patient's initial sepsis screen is negative. Does the patient have a suspected source of infection? No. Patient's initial sepsis screen is negative. Risk Assessment: Do you want to hurt yourself or someone else? Patient reports no desire to harm self or others. Onset of symptoms was July 27, 2022. 00:03 Method Of Arrival: Ambulatory vc1 00:03 Acuity: YARIEL 4 vc1 Triage Assessment: 00:09 General: Appears in no apparent distress. uncomfortable, ill, Behavior is calm, vc1 cooperative, appropriate for age. Pain: Complains of pain in head, chest, throat, lower back Pain does not radiate. Pain currently is 7 out of 10 on a pain scale. EENT: Reports pain when swallowing. Neuro: Level of Consciousness is awake, obeys commands, lethargic, Oriented to person, place, time, situation, Appropriate for age. Cardiovascular: No deficits noted. Respiratory: Airway is patent Trachea Respiratory effort is even, unlabored, Respiratory pattern is regular, symmetrical. GI: No deficits noted. No signs and/or symptoms were reported involving the gastrointestinal system. : No deficits noted. No signs and/or symptoms were reported regarding the genitourinary system. Derm: No deficits noted. No signs and/or symptoms reported regarding the dermatologic system. Musculoskeletal: No deficits noted. No signs and/or symptoms reported regarding the musculoskeletal system. Historical: - Allergies: 00:07 Hydrocodone-Acetaminophen; vc1 - Home Meds: 00:07 Estradiol Oral [Active]; testerone blocking hormone [Active]; vc1 - PMHx: 00:07 ADD/ADHD; Hernia; vc1 - PSHx: 00:07 Appendectomy; vc1 - Immunization history:: Client reports having NOT received the Covid vaccine. - Social history:: Smoking status: Patient denies any tobacco usage or history of. Screenin:53 [facility] ED Fall Risk Assessment (Adult) History of falling in the last 3 months, rv including since admission. Abuse screen: Denies threats or abuse. Denies injuries from another. Nutritional screening: No deficits noted. Tuberculosis screening: No symptoms or risk factors identified. Assessment: 01:00 General: Appears in no apparent distress. uncomfortable, Behavior is calm, cooperative, jj7 appropriate for age. EENT: Reports. EENT: Reports SORE THROAT AND HEADACHE. 01:53 General: Appears in no apparent distress. Respiratory: Airway is patent Respiratory rv effort is even, unlabored, Breath sounds are clear bilaterally. 01:54 EENT: Throat is pink. rv Vital Signs: 00:03 BP 134 / 76; Pulse 99; Resp 19; Temp 101; Pulse Ox 99% ; Weight 83.46 kg; Height 5 ft. vc1 9 in. ; Pain 9/10; 01:53 BP 125 / 67; Pulse 99; Resp 19; Temp 98.6(O); Pulse Ox 99% on R/A; rv 00:03 Body Mass Index 27.17 (83.46 kg, 175.26 cm) vc1 00:03 Pain Scale: Adult vc1 ED Course: 07/30 23:56 Patient arrived in ED. ag3 07/31 00:03 Jyoti Tran FNP-C [facility]. kb 00:03 Julian Keenan MD is Attending Physician. kb 00:07 Triage completed. vc1 00:09 Arm band placed on left wrist. vc1 00:20 Carson, Juwairiyah, RN is Primary Nurse. jj7 01:12 SARS-COV-2 Antigen Rapid Sent. jj7 01:12 Flu Sent. jj7 01:12 Strep Sent. jj7 01:37 Urinalysis w/ reflexes Sent. jj7 01:54 Patient has correct armband on for positive identification. rv 02:09 No provider procedures requiring assistance completed. Patient did not have IV access rv during this emergency room visit. Administered Medications: 01:05 Drug: Ibuprofen PO 600 mg Route: PO; jj7 Medication: 01:54 VIS not applicable for this client. rv Outcome: 02:01 Discharge ordered by . kb 02:09 Discharged to home ambulatory. rv 02:09 Condition: improved 02:09 Discharge instructions given to patient, Instructed on discharge instructions, follow up and referral plans. Demonstrated understanding of instructions, follow-up care. 02:10 Patient left the ED. rv Signatures: Jyoti Tran, COMMUNITY DEVELOPMENT WORKER-C COMMUNITY DEVELOPMENT WORKER-CkRasheed Acevedo RN RN rv Rose Justice ag3 Nuria Beard RN RN vc1 Chayo Byrd, RN RN jj7 Corrections: (The following items were deleted from the chart) 00:09 00:07 Home Meds: estrogen; vc1 vc1
[2022-07-31 02:43] VITALS: O2SAT 99
[2022-07-31 02:45] VITALS: BP 125/67; TEMP 98.6
== END 2022-07-31 02:10 | disposition home or self-care (01) ==
LOC: ER 23:53
DX: J02.9 Acute pharyngitis, unspecified (principal)
CPT/HCPCS: 36415; 81003; 87070; 87081; 87804; 87811; 99283